=== PATIENT | female | born 1960 | race African-American/Black ===

== ENCOUNTER 2020-04-21 07:52 | Outpatient (CLI) | payer BC, SELFPAY ==
--- NOTE | 2020-04-21 09:06 | ECG_ITS ---
Measurements Intervals [place] Rate: 59 P: 11 AL: 182 QRS: -9 QRSD: 88 T: 4 QT: 393 QTc: 390 Interpretive Statements SINUS BRADYCARDIA BORDERLINE T WAVE ABNORMALITY- ANT/INF LEADS BASELINE ARTIFACT- I, III, AVL BORDERLINE ECG Electronically Signed On 04-21-2020 9:28:00 CDT by Rakan Orellana D.O.
[2020-04-21 09:33] LABS: Basophils Percent Auto 0.7 % (0.2-1.2); Eosinophils Absolute Auto 0.1 K/mm3 (0-0.3); Eosinophils Percent Auto 3.7 % (0-4.4); Hematocrit 38.9 % (37.0-47.0); Immature Granulocyte Absolute 0.01 K/mm3 (0.00-0.031); Immature Granulocyte Percent A 0.4 % (0-0.5); Lymphocytes Absolute Auto 1.04 K/mm3 (0.9-3.2); Lymphocytes Percent Auto 38.5 % (18.3-44.2); Mean Corpuscular HGB Conc 33.4 g/dl (32-36); Mean Corpuscular Hemoglobin 29.1 pg (26-34); Mean Corpuscular Volume 87.2 fl (80-100); Mean Platelet Volume 11.6 fl (7.4-10.4); Monocytes Absolute Auto 0.3 K/mm3 (0.1-0.6); Monocytes Percent Auto 12.6 % (2.6-8.5); Neutrophils Absolute Auto 1.2 K/mm3 (1.3-6.7); Neutrophils Percent Auto 44.1 % (45.5-73.1); Platelet Count Result 168 k/mm3 (150-375); Red Blood Count 4.46 M/mm3 (4.2-5.4); Red Cell Distribution Width 12.5 % (11.5-14.5); White Blood Count 2.7 K/mm3 (4.5-10.0)
[2020-04-21 09:38] LABS: Add Urine Microscopic? NO; Appearance Urine Clear (Clear); Bilirubin Urine Negative (Negative); Blood Urine Negative (Negative); Color Urine Yellow (Yellow); Glucose Urine UA Negative (Negative); Ketones Urine Negative (Negative); Leukocyte Esterase Ur Negative LEU/UL (Negative); Mucus Urine Rare /lpf; Nitrate Urine Negative (Negative); Protein Urine Negative (Negative); RBC Urine 0-2 /hpf (0-2); Specific Grav Ur 1.016 (1.001-1.035); Urobilinogen Urine Negative mg/dL (<2.0); WBC Urine 0-3 /hpf
[2020-04-21 09:38] LABS: Hemoglobin A1C 5.3 % (<5.7)
[2020-04-21 09:39] LABS: Urine Cotinine NEGATIVE
[2020-04-21 09:40] LABS: Albumin Level 4.3 g/dL (3.5-5.1); Anion Gap 4 mmol/L (8-16); Blood Urea Nitrogen 11 mg/dL (7-17); Calcium 9.6 mg/dL (8.4-10.2); Carbon Dioxide 31 mmol/L (22-30); Chloride 104 mmol/L (98-107); Estimated Glomerular Filt Rate > 60; Glucose 92 mg/dL (65-105); Potassium 4.1 mmol/L (3.4-5.0); Sodium 139 mmol/L (137-145)
[2020-04-21 09:42] LABS: INR 0.9; Partial Thromboplastin Time 26.8 SECONDS (22.3-36.8); Prothrombin Time 12.2 Seconds (11.1-14.7)
== END 2020-04-21 07:53 | disposition home or self-care (01) ==
PROVIDERS: PCP Family Medicine; Visit Provider Orthopaedic Surgery
DX: Z01.818 Encounter for other preprocedural examination (principal); M17.12 Unilateral primary osteoarthritis, left knee
CPT/HCPCS: 80048; 80307; 81003; 82040; 83036; 85025; 85610; 85730; 87081; 93005

== ENCOUNTER 2020-05-12 00:37 | Outpatient (CLI) | payer BC, SELFPAY ==
[2020-05-12 18:12] LABS: SARS-CoV-2 RNA PCR Negative
== END 2020-05-12 00:38 | disposition home or self-care (01) ==
LOC: ANHCOVIDDT 00:38
PROVIDERS: PCP Family Medicine; Visit Provider Orthopaedic Surgery
DX: Z01.812 Encounter for preprocedural laboratory examination (principal); Z20.828 Contact with and (suspected) exposure to other viral communicable diseases
CPT/HCPCS: 87635; C9803; U0003

== ENCOUNTER 2020-05-19 09:37 | Outpatient (CLI) | payer BC, SELFPAY ==
--- NOTE | 2020-05-19 | EST_ITS ---
Patient Info Name: Abbey Miller Age: 60 years : 1960 Gender: Female Ht: 60 in Wt: 162 lbs BSA: 1.79 m2 BP: 136 / 87 mmHg Heart Rhythm: Sinus Rhythm Exam Date: 05/19/2020 10:46 AM Exam Location: [facility] Stress Patient Status: Outpatient Admit Date: 05/19/2020 Staff Ordering Physician: Gilson, Mary Jane Alcaraz MD Carpet Layer Helper: Dorota Thurman RDCS Attending Provider: Ivan, Mary Jane Alcaraz MD Exercise Technologist: Maria Teresa Quesada RDCS Exercise Physician: Rakan Orellana DO Exam Type: CA echo dobutamine stress Study Info Indications - PRE-OP Dobutamine stress echocardiogram is performed. Summary 1. 1. Negative dobutamine stress test for ischemic ST changes by ECG criteria. 2. 2. Appropriate HR response to catecholamines. 3. 3. Negative dobutamine stress echocardiogram for ischemia by wall motion analysis. 4. 4. Patient informed of the above results. Stress Echo Findings Left Ventricle Appropriate increase in LV endocardial thickening with systole. Appropriate augmentation of contractility with systole. No wall motion abnormality. Left Ventricle Normal LV systolic function, no wall motion abnormality. Max Pred HR: 162 bpm Target HR: 138 bpm Termination Reason: Completed protocol Cardiac Symptoms: Vague numbness in her head Resting ECG Sinus rhythm. Stress ECG No ST changes. Arrhythmias None. Report Signatures Stress ECG Echo
== END 2020-05-19 09:38 | disposition home or self-care (01) ==
PROVIDERS: PCP Family Medicine; Visit Provider Family Medicine
DX: Z01.810 Encounter for preprocedural cardiovascular examination (principal)
CPT/HCPCS: 93351; J0461; J1250